=== PATIENT | male | born 1970 | race Caucasian/White ===

== ENCOUNTER 2019-09-01 07:10 | Outpatient (CLI) | payer BC, SELFPAY ==
--- NOTE | ~2019-09-01 | CT_ITS ---
EXAMINATION: CT abdomen pelvis w con DATE: 09/01/2019 07:47 INDICATION: Colon cancer TECHNIQUE: Computed tomography (CT) of the abdomen and pelvis was performed with 100 mL Omnipaque-350 intravenous contrast. Automated exposure control and iterative reconstruction technique were employe d. The dose-length product was 545.75 mGy-cm. COMPARISON: 11/12/2018 FINDINGS: Lung bases are clear. Heart size is normal. No pericardial or pleural effusion. Tiny calcified gallst one in the dependent aspect of the normal-appearing gallbladder. Liver, spleen, pancreas, bilateral a drenal glands and kidneys are normal. Anastomotic suture line along the descending colon at the site of a prior colonic intussusception likely related to reported colon cancer which appears to have been resected. The bowels including the appendix are otherwise normal. Bilateral small fat-containing ing uinal hernias. Bladder is normal. No free intraperitoneal gas or fluid. No pathologically enlarged ab dominal or pelvic lymphadenopathy. No suspicious lytic or blastic bone lesions. Chronic bilateral L5 pars interarticularis defects with unchanged negligible anterolisthesis L5 on S1. IMPRESSION: 1. No evident metastatic disease. 2. Cholelithiasis. 3. Small bilateral fat-containing inguinal hernias. Reviewed, dictated and finalized at location A.
== END 2019-09-01 07:11 | disposition home or self-care (01) ==
LOC: ANHIMG 07:15
PROVIDERS: PCP Family Medicine; Visit Provider Internal Medicine Hematology & Oncology
DX: C18.2 Malignant neoplasm of ascending colon (principal); K80.20 Calculus of gallbladder without cholecystitis without obstruction; K40.20 Bilateral inguinal hernia, without obstruction or gangrene, not specified as recurrent
CPT/HCPCS: 74177; Q9967

== ENCOUNTER 2019-11-14 00:17 | Outpatient (CLI) | payer BC, SELFPAY ==
[2019-11-14 19:23] LABS: SARS-CoV-2 RNA PCR Negative
== END 2019-11-14 00:18 | disposition home or self-care (01) ==
LOC: ANHCOVIDDT 00:17
PROVIDERS: PCP Family Medicine; Visit Provider Internal Medicine Gastroenterology
DX: Z01.818 Encounter for other preprocedural examination (principal); Z11.59 Encounter for screening for other viral diseases
CPT/HCPCS: 87635; C9803; U0003

== ENCOUNTER 2019-11-17 02:11 | Day surgery (SDC) | payer BC, SELFPAY ==
[2019-11-11 10:34] VITALS: BMI 31.2
[2019-11-17 06:18] VITALS: BP 132/89; PULSE 64; RESP 20; TEMP 36.5; O2SAT 99
[2019-11-17] MEDS: LACTATED RINGERS 1,000 ML 150 ML IV CONT (06:33)
--- NOTE | 2019-11-17 06:58 | WPDANESEPPF ---
Anes - Initial Pre Proc Eval Procedure: Operation Date: 11/17/19 07:30 Proposed Procedures p Screening Colonoscopy - Alphonso Bain MD Date/Time: 11/17/19 06:58 Surgeon: Alphonso Bain MD Pre Op Diagnosis: Neoplasm Screening/ Hx Colon Ca Patient Data Age: 49 Gender: M Height: 5 ft 3 in Weight: 77 kg Last Vital Signs Temp 36.5 C 11/17/19 06:18 Pulse 64 11/17/19 06:18 Resp 20 11/17/19 06:18 BP 132/89 11/17/19 06:18 Pulse Ox 99 11/17/19 06:18 Allergies Allergy/AdvReac Type Severity Reaction Status Date / Time No Known Allergies Allergy Verified 11/17/19 06:16 Home Medications Medication Instructions Recorded Confirmed Type omeprazole magnesium [Prilosec OTC] 20 mg PO DAILY 02/11/19 11/11/19 History Patient hx anesthesia problems: none Family hx anesthesia problems: none PMFSH Past Medical History Medical History DENNIS (obstructive sleep apnea) Family History Family History Father Family history of malignant neoplasm Mother Family history of malignant neoplasm Social History Social History Smoking status: Never smoker Alcohol intake: never Anes - Eval Final PreProcedure Day of Procedure 11/17/19 06:58 Patient weight: overweight Heart: regular rate and rhythm Lungs: clear to auscultation Airway: Mallampati scale class II Neurological: alert and oriented Last oral intake: >/= 8 hours ASA classification: III Emergent: no Anesthetic plan: proceed Anesthesia type and monitoring: general GIVS and standard monitoring Informed Consent: The patient's anesthetic plan and its attendant risks and benefits were discussed with the patient/family/POA. Questions were solicited and answers provided to the satisfaction of the patient/family/POA.
--- NOTE | 2019-11-17 07:16 | WPDGICN ---
Assessment and Plan Assessment and plan (1) History of colon cancer in adulthood: Code(s): Z85.038 - Personal history of other malignant neoplasm of large intestine Status: Acute Assessment and Plan: Patient has a history of a T3 N1 colon cancer resected in October of 2018. Patient presents today for follow-up examination is current weight appetite bowel movements are normal. Plan is for continued oncology follow-up. Further recommendations may be given after colonoscopy. GI Consult Note Consult date/time: 11/17/19 07:16 HPI: Campos Oconnell is a 49 year old male seen in evaluation at the request of Dr Kumar and DR Beverly. Patient presents for colonoscopy. Patient has a history of carcinoma of the colon identified 1 year ago and underwent surgical resection. Since that time he has done well. His current weight appetite bowel movements are normal. He denies abdominal pain. He denies any bleeding. Currently follows with Dr. joe lund after surgical resection of colon cancer. Patient states current weight appetite bowel movements are normal. He denies abdominal pain or bleeding. Family history is noncontributory. There is no known history of colon or rectal disease. At the time of resection of his colon cancer he did have metastases in 05/17 lymph nodes. Tumor was noted to progressed through the colon wall into the pericolonic rectal tissue. It was felt to be a T3 N1 stage tumor. Review of Systems Review of Systems: All systems reviewed & are unremarkable except as noted in HPI and below PMFSH Past Medical History Medical History DENNIS (obstructive sleep apnea) Family History Family History Father Family history of malignant neoplasm Mother Family history of malignant neoplasm Social History Social History Smoking status: Never smoker Alcohol intake: never Meds Home Medications and Allergies Home Medications Medication Instructions Recorded Confirmed Type omeprazole magnesium [Prilosec OTC] 20 mg PO DAILY 02/11/19 11/11/19 History Allergies Allergy/AdvReac Type Severity Reaction Status Date / Time No Known Allergies Allergy Verified 11/17/19 06:16 Vital Signs Vital Signs - 24 hr 11/17/19 06:18 Temperature 97.7 F Pulse Rate 64 Respiratory Rate 20 Blood Pressure 132/89 Pulse Oximetry 99 Exam Narrative: Exam Narrative: Physical exam reveals patient to be alert. Vital signs stable. HEENT exam unremarkable. Lungs are clear to auscultation and percussion. Heart is without murmur or extra sounds. Abdominal exam bowel sounds are present soft nontender with no organomegaly. Digital external rectal exam normal.
[2019-11-17 07:50] VITALS: BP 114/75; PULSE 68; RESP 16; O2SAT 99
[2019-11-17 07:56] VITALS: BP 114/81; PULSE 58; RESP 14; O2SAT 97
[2019-11-17 08:06] VITALS: BP 124/83; PULSE 61; RESP 22; O2SAT 100
== END 2019-11-17 08:17 | disposition home or self-care (01) ==
PROVIDERS: PCP Family Medicine; Visit Provider Internal Medicine Gastroenterology
PROC: 0DJD8ZZ Inspection of Lower Intestinal Tract, Via Natural or Artificial Opening Endoscopic (ICD-10-PCS; CPT 45378; principal; 2019-11-17 07:30)
DX: Z12.11 Encounter for screening for malignant neoplasm of colon (principal); K63.5 Polyp of colon; K64.8 Other hemorrhoids; Z85.038 Personal history of other malignant neoplasm of large intestine; E66.3 Overweight; Z68.30 Body mass index [BMI] 30.0-30.9, adult; G47.33 Obstructive sleep apnea (adult) (pediatric); Z79.899 Other long term (current) drug therapy
CPT/HCPCS: 45385; 88305; J2704; J7120

== ENCOUNTER 2020-04-06 10:27 | Outpatient (CLI) | payer BC, SELFPAY ==
--- NOTE | ~2020-04-06 | CT_ITS ---
EXAMINATION: CT abdomen pelvis w con DATE: 04/06/2020 11:07 INDICATION: Restaging of malignant neoplasm of ascending colon TECHNIQUE: Computed tomography (CT) of the abdomen and pelvis was performed with 100 cc Omnipaque 350 intravenous contrast. Automated exposure control and iterative reconstruction technique were employe d. Exam dose: 591.81 mGy-cm total exam DLP. COMPARISON: 09/01/2019 CT abdomen pelvis FINDINGS: Normal heart size. No pericardial or pleural effusion. The lung bases are clear of infiltra te or consolidation. There is an approximately 3 mm stone at the neck of the gallbladder. No abnormal gallbladder distenti on or gallbladder wall thickening or pericholecystic fluid or stranding. No hepatic space-occupying mass lesion. No bile duct dilatation. Normal splenic size. No pancreatic m ass lesion, calcification or ductal dilatation. Normal morphology of the adrenal glands. No renal mass lesion. No urinary tract calculus or hydroureteronephrosis. The urinary bladder is unre markable. Mild prostate enlargement. Small bilateral fat-containing inguinal hernias, right greater than left. Normal appendix. There is a suture line at the descending colon, consistent with colon resection for previously reported colon malignancy. No bowel obstruction, bowel wall thickening, pneumatosis or int raperitoneal free air is evident. Normal caliber of the abdominal aorta. No intraperitoneal or retroperitoneal or pelvic mass lesion or adenopathy or ascites. Small fat-containing umbilical hernia. There are bilateral L5 pars intra-articular is defects with grade 1 anterolisthesis at L5-S1. No suspicious osteolytic or osteoblastic lesions. IMPRESSION: Status post left colon resection for history of malignancy; no prostatic disease is evid ent Cholelithiasis Bilateral L5 pars interarticularis defects with associated grade 1 anterolisthesis at L5-S1 Reviewed, dictated and finalized at [facility]. Reviewed, dictated and finalized at location A. CONTROL TECHNICIAN IMPRESSION: Status post left colon resection for history of malignancy; no pro static disease is evident Cholelithiasis Bilateral L5 pars interarticularis defects with associated grade 1 anterolisthe sis at L5-S1
== END 2020-04-06 10:28 | disposition home or self-care (01) ==
PROVIDERS: PCP Family Medicine; Visit Provider Internal Medicine Hematology & Oncology
DX: C18.2 Malignant neoplasm of ascending colon (principal); K80.20 Calculus of gallbladder without cholecystitis without obstruction; K40.20 Bilateral inguinal hernia, without obstruction or gangrene, not specified as recurrent; N40.0 Benign prostatic hyperplasia without lower urinary tract symptoms; K42.9 Umbilical hernia without obstruction or gangrene
CPT/HCPCS: 74177; Q9967

== ENCOUNTER 2020-05-29 01:28 | Outpatient (CLI) | payer BC, SELFPAY ==
[2020-05-29 18:47] LABS: SARS-CoV-2 RNA PCR Negative
== END 2020-05-29 01:29 | disposition home or self-care (01) ==
LOC: ANHCOVIDDT 01:28
PROVIDERS: PCP Family Medicine; Visit Provider Surgery
DX: Z01.812 Encounter for preprocedural laboratory examination (principal); Z20.822 Contact with and (suspected) exposure to COVID-19
CPT/HCPCS: C9803; U0003; U0005

== ENCOUNTER 2020-06-02 01:28 | Day surgery (SDC) | payer BC, SELFPAY ==
[2020-05-28 13:01] VITALS: BMI 31.2
--- NOTE | 2020-06-01 14:16 | WPDANESEPPF ---
Anes - Initial Pre Proc Eval Procedure: Operation Date: 06/02/20 14:00 Proposed Procedures p Removal Ana Cath - Jan Herrera MD Date/Time: 06/01/20 14:16 Surgeon: Jan Herrera MD Pre Op Diagnosis: malignant neoplasm of ascending colon Patient Data Age: 49 Gender: M Height: 1.6 m Weight: 80 kg Allergies Allergy/AdvReac Type Severity Reaction Status Date / Time No Known Allergies Allergy Verified 05/28/20 13:00 Home Medications Medication Instructions Recorded Confirmed Type omeprazole magnesium [Prilosec OTC] 20 mg PO DAILY 02/11/19 05/28/20 History PMFSH Past Medical History Medical History (Updated 06/01/20 @ 14:18 by Sanjiv Lee MD) Chronic GERD Malignant neoplasm of descending colon Obesity DENNIS (obstructive sleep apnea) Surgical History Surgical History (Updated 06/01/20 @ 14:18 by Sanjiv Lee MD) S/P colon resection 10/2018 Family History Family History Father Family history of malignant neoplasm Mother Family history of malignant neoplasm Social History Social History Smoking status: Former smoker Additional smoking assessment comments: STATES 1PK/2-3DAYS/2YRS - QUIT AGE 18 Alcohol intake: current Drinks per week: 3 Substance use: never Spiritual care concerns: No Anes - Eval Final PreProcedure Day of Procedure 06/01/20 14:16 Patient weight: obese Heart: regular rate and rhythm Lungs: clear to auscultation and normal air movement Airway: Mallampati scale class II Neurological: alert and oriented Last oral intake: >/= 8 hours ASA classification: III Emergent: no Anesthetic plan: proceed Anesthesia type and monitoring: general GIVS Informed Consent: The patient's anesthetic plan and its attendant risks and benefits were discussed with the patient/family/POA. Questions were solicited and answers provided to the satisfaction of the patient/family/POA.
--- NOTE | 2020-06-02 13:54 | WPDHPUPDATE1 ---
History and Physical Update Update Date/Time: 06/02/20 13:54 History and Physical has been reviewed, including an updated exam of the patient. There are NO changes in the patient's condition. Risks, benefits, and alternatives have been discussed and questions answered. Patient agrees to proceed with procedure.
--- NOTE | 2020-06-02 13:55 | PM.HPGS ---
History of Present Illness History of Present Illness Consent: Risks, benefits, and alternatives of a removal of Port-A-Cath have been discussed and questions answered. Patient agrees to proceed with procedure. Chief complaint: malignant neoplasm of ascending colon Narrative: Campos Oconnell is a 49 year old male who had a stage III left-sided colon cancer in 2018. Through late 2018 and part of 2019 patient underwent FOLFOX regimen of chemotherapy. States that his port was placed and ovary in [place] somewhere. Head is been functioning well. He was scheduled to have a flushed again on June 08. However, he presents at this time at the request of Dr. Beverly who was his medical oncologist to have his Port removed as they have a CT scan showing no recurrent disease and he is planning to continue following up with Dr. Beverly in the future. He will probably not need any more chemotherapy. Review of Systems Constitutional: Constitutional: Reports no additional constitutional complaints, Reports fatigue and Denies malaise Eyes: Eyes: Denies change in vision and Denies loss of vision ENT: Reports Normal hearing present, Denies change in voice, Denies dizziness, Denies hoarseness and Denies sore throat Cardiovascular: Cardiovascular: Denies chest pain, Denies leg edema and Denies dyspnea Respiratory: Respiratory: Denies cough, Denies dyspnea and Denies wheezing Gastrointestinal: Gastrointestinal: Denies hematochezia, Denies change in bowel habits and Denies heartburn Genitourinary: Genitourinary: Denies urinary frequency and Denies urinary incontinence Neurologic: Reports Normal hearing present, Denies confusion, Denies dizziness, Denies loss of vision, Denies memory loss and Denies seizure-like activity Psychiatric: Psychiatric: Denies confusion, Denies depression and Denies memory loss Endocrine: Endocrine: Denies cold intolerance and Reports fatigue Hematologic/Lymphatic: Hematologic/Lymphatic: Denies easy bleeding and Denies easy bruising Comments: History of mild anemia No history of bleeding problems. Not on any blood thinners at this time. Allergic/Immunologic: Allergic/Immunologic: Denies wheezing PMFSH Past Medical History Medical History Anemia, iron deficiency Chronic GERD Malignant neoplasm of descending colon (~2018) Obesity DENNIS (obstructive sleep apnea) Surgical History Surgical History S/P colon resection (~2018) 10/2018 Family History Family History Father Family history of malignant neoplasm Mother Family history of malignant neoplasm Social History Social History Smoking status: Former smoker Additional smoking assessment comments: STATES 1PK/2-3DAYS/2YRS - QUIT AGE 18 Alcohol intake: current Drinks per week: 3 Substance use: never Living arrangements: alone Spiritual care concerns: No Meds Home Medications and Allergies Home Medications Medication Instructions Recorded Confirmed Type omeprazole magnesium [Prilosec OTC] 20 mg PO DAILY 02/11/19 05/28/20 History Allergies Allergy/AdvReac Type Severity Reaction Status Date / Time No Known Allergies Allergy Verified 05/28/20 13:00 Exam Const: General: cooperative, healthy appearing, no acute distress, well developed and alert; No confusion Nutritional Appearance: well nourished Orientation/consciousness: patient oriented x3 and No confusion Limitations: no limitations HENMT: Head: normal to inspection, normocephalic and atraumatic Ears: hearing grossly normal bilaterally General nose exam: Normal external nose present Face and sinus: no edema Mouth: Yes Normal oral and palatal mucosa present and Yes lip normal Throat: posterior oropharynx normal Eyes: General: appearanc
[2020-06-02 13:59] VITALS: BP 156/90; PULSE 78; RESP 14; TEMP 37; O2SAT 99
[2020-06-02 14:20] VITALS: BP 136/82; PULSE 74; RESP 14; O2SAT 99
[2020-06-02 14:30] VITALS: BP 132/81; PULSE 83; RESP 14; O2SAT 98
[2020-06-02] MEDS: LIDO 2%/EPINEPHRINE 1:100,000 20 ML VIAL INFILTRATE (14:36)
[2020-06-02 14:40] VITALS: BP 128/74; PULSE 89; RESP 16; O2SAT 98
[2020-06-02 14:50] VITALS: BP 136/82; PULSE 88; RESP 16; O2SAT 95
[2020-06-02 15:01] VITALS: BP 139/86; PULSE 77; RESP 14; O2SAT 99
--- NOTE | 2020-06-02 15:16 | P.OP_ITS ---
Procedure Note - Detailed Date of procedure: 06/02/20 Pre-op diagnosis: malignant neoplasm of ascending colon Indwelling Port-A-Cath Post-op diagnosis: same Procedure performed: Removal of Port-A-Cath Description of procedure: Prior to the procedure the patient was seen in the holding area and the area of proposed surgery was marked. All questions were answered and the patient wished to proceed with removal of the Port-A-Cath. The patient was brought to the operating room and placed supine. The entire right neck, chest, and shoulder were prepped with chlorhexidine. The area was draped off. Time-out was performed confirming patient and site of surgery. Following this a 15 blade knife was used to make incision directly on the scar from the previous port placement. This was done after infiltrating local anesthetic into the area of and inferior to the scar and into the area of the pocket containing the port to some degree using 2% xylocaine with epinephrine. Following this we carefully dissected down to the junction of the port and catheter. Bovie cautery with needle-tip was used to carefully incise the capsule around the port and free up the scar tissue around the junction of the port and catheter. Two Prolene sutures that were holding the port to the underlying fascia were carefully excised with a 15 blade knife and mosquito hemostats. Following this the port was brought up and out of the pocket. Then watching the patient's respirations I carefully removed the catheter in one smooth pull while applying pressure in the lower right neck area at the catheter exit site as the patient was breathing out. Pressure was held for 1 minute. I used Bovie cautery on some the subcutaneous tissues as we waited for good clotting. Again hemostasis was checked in the wound using Bovie cautery for superficial hemostasis in the subcutaneous tissues. Following this closure was obtained with 2 layers. I used buried subcutaneous sutures of 3-0 Vicryl in the subcutaneous layer followed by a running subcuticular closure of 4-0 Monocryl on the skin. Patient tolerated the procedure well. Estimated blood loss was 3 cc Sponge, needle, and instrument counts were correct at the end the procedure and patient was taken to the outpatient recovery area in good condition. Implants: none Anesthesia: local ( 2% xylocaine with epinephrine) Surgeon: Jan Herrera MD Certified Residential Medication Aide: none Drains: No Packing: No Pathology: other (Port and the catheter were inspected and were intact) Complications: No immediate complications Condition: stable Disposition: same day ( outpatient recovery area) Findings: unremarkable port and catheter that were intact.
== END 2020-06-02 15:21 | disposition home or self-care (01) ==
PROVIDERS: PCP Family Medicine; Visit Provider Surgery
PROC: (CPT 36589; principal; 2020-06-02 14:00)
DX: Z45.2 Encounter for adjustment and management of vascular access device (principal); Z85.038 Personal history of other malignant neoplasm of large intestine; Z92.21 Personal history of antineoplastic chemotherapy; Z90.49 Acquired absence of other specified parts of digestive tract
CPT/HCPCS: 36590

== ENCOUNTER 2021-02-04 09:16 | Outpatient (CLI) | payer BC, SELFPAY ==
--- NOTE | ~2021-02-04 | CT_ITS ---
EXAMINATION: CT abdomen pelvis w con DATE: 02/04/2021 09:52 INDICATION: Malignant neoplasm of ascending colon. TECHNIQUE: Computed tomography (CT) of the abdomen and pelvis was performed with 100 mL Omnipaque 350 intravenous contrast. Automated exposure control and iterative reconstruction technique were employe d. The dose-length product was 486.01 mGy-cm. COMPARISON: CT abdomen and pelvis 04/06/2020 FINDINGS: The visualized portions of the lung bases are clear without pneumonia or pleural effusion. The heart size is normal. No pericardial effusion. The liver is normal. There is a gallstone in the g allbladder, which is normal in size. The spleen, pancreas, adrenal glands, and kidneys are normal. Th ere are no dilated loops of bowel. There is an anastomosis in the descending colon. The appendix is n ormal. There is a right inguinal hernia containing fat. There are no pathologically enlarged lymph no jay. There is no free intraperitoneal fluid. There are chronic bilateral L5 pars defects. There is 3 mm anterolisthesis of L5 on S1. IMPRESSION: 1. No evidence of metastatic disease. Reviewed, dictated and finalized at location A.
== END 2021-02-04 09:17 | disposition home or self-care (01) ==
PROVIDERS: PCP Family Medicine; Visit Provider Internal Medicine Hematology & Oncology
DX: C18.2 Malignant neoplasm of ascending colon (principal)
CPT/HCPCS: 74177; Q9967

== ENCOUNTER 2022-03-03 08:24 | Outpatient (CLI) | payer BC, SELFPAY ==
--- NOTE | ~2022-03-03 | CT_ITS ---
EXAMINATION: CT abdomen pelvis w con DATE: 03/03/2022 09:52 INDICATION: Colon cancer TECHNIQUE: Computed tomography (CT) of the abdomen and pelvis was performed with 100 mL Omnipaque-350 intravenous contrast. Automated exposure control and iterative reconstruction technique were employe d. The dose-length product was 444.12 mGy-cm. COMPARISON: 02/04/2021 FINDINGS: Lung bases are clear. Heart size is normal. No pericardial or pleural effusion. Liver, spleen, pancre as, bilateral adrenal glands and kidneys are normal. 3 mm calcified gallstone at the neck of the gall bladder. No intra-axial hepatic biliary ductal dilation. Anastomotic suture line along the descending colon suggesting prior segmental resection likely for reported colon cancer. Small bowel and appendi x are normal. Bladder is normal. No free intraperitoneal gas or fluid. No pathologically enlarged abd ominal or pelvic lymphadenopathy. Small fat-containing right inguinal hernia. L5 spondylolysis with b ilateral pars interarticularis defects and 3 mm anterolisthesis L5 on S1. IMPRESSION: 1. No evident metastatic disease or acute intra-abdominal/pelvic process. 2. Cholelithiasis. Reviewed, dictated and finalized at location B.
== END 2022-03-03 08:25 | disposition home or self-care (01) ==
PROVIDERS: PCP Family Medicine; Visit Provider Internal Medicine Hematology & Oncology
DX: C18.2 Malignant neoplasm of ascending colon (principal); K80.20 Calculus of gallbladder without cholecystitis without obstruction
CPT/HCPCS: 74177; Q9967

== ENCOUNTER 2022-03-03 10:19 | Outpatient (CLI) | payer BC, SELFPAY ==
[2022-03-03 10:33] LABS: Basophils Percent Auto 0.7 % (0.2-1.2); Eosinophils Absolute Auto 0.1 K/mm3 (0-0.3); Eosinophils Percent Auto 1.8 % (0-4.4); Hemoglobin 16.3 g/dL (14.0-18.0); Immature Granulocyte Absolute 0.04 K/mm3 (0.00-0.031); Immature Granulocyte Percent A 0.9 % (0-0.5); Lymphocytes Absolute Auto 1.56 K/mm3 (0.9-3.2); Lymphocytes Percent Auto 35.9 % (18.3-44.2); Mean Corpuscular HGB Conc 36.2 g/dl (32-36); Mean Corpuscular Volume 91.1 fl (80-100); Mean Platelet Volume 9.4 fl (7.4-10.4); Monocytes Absolute Auto 0.3 K/mm3 (0.1-0.6); Monocytes Percent Auto 6.7 % (2.6-8.5); Neutrophils Absolute Auto 2.4 K/mm3 (1.3-6.7); Platelet Count Result 188 k/mm3 (150-375); Red Blood Count 4.94 M/mm3 (4.6-6.20); Red Cell Distribution Width 12.3 % (11.5-14.5); White Blood Count 4.4 K/mm3 (4.5-10.0)
[2022-03-03 12:27] LABS: Alanine Aminotransferase 30 U/L (6-50); Albumin Level 4.7 g/dL (3.5-5.1); Alkaline Phosphatase 75 U/L (38-126); Anion Gap 14 mmol/L (8-16); Aspartate Amino Transferase 24 U/L (17-59); Bilirubin,Total 0.9 mg/dL (0.2-1.3); Blood Urea Nitrogen 16 mg/dL (9-20); Calcium 8.9 mg/dL (8.4-10.2); Carbon Dioxide 25 mmol/L (22-30); Chloride 103 mmol/L (98-107); Estimated Glomerular Filt Rate > 60; Glucose 119 mg/dL (65-110); Sodium 142 mmol/L (137-145)
[2022-03-03 12:57] LABS: Carcinoembryonic Antigen 1.1 ng/mL (0.0-3.0)
== END 2022-03-03 10:20 | disposition home or self-care (01) ==
LOC: ANHLAB 10:20
PROVIDERS: PCP Family Medicine; Visit Provider Internal Medicine Hematology & Oncology
DX: C18.2 Malignant neoplasm of ascending colon (principal)
CPT/HCPCS: 36415; 80053; 82378; 85025

== ENCOUNTER 2022-12-22 01:24 | Day surgery (SDC) | payer OTHER, SELFPAY ==
[2022-12-08 15:19] VITALS: BMI 30.8
[2022-12-22 08:35] VITALS: BP 142/93; PULSE 65; RESP 20; TEMP 36.2; O2SAT 100
--- NOTE | 2022-12-22 08:37 | P.PNAN_ITS ---
Anes - Initial Pre Proc Eval Procedure: Operation Date: 12/22/22 09:30 Proposed Procedures p Colonoscopy - Alphonso Bain MD Date/Time: 12/22/22 08:37 Surgeon: Alphonso Bain MD Pre Op Diagnosis: hx colon ca Patient Data Age: 52 Gender: M Height: 1.6 m Weight: 77 kg Last Vital Signs Temp 36.2 C L 12/22/22 08:35 Pulse 65 12/22/22 08:35 Resp 20 12/22/22 08:35 BP 142/93 H 12/22/22 08:35 Pulse Ox 100 12/22/22 08:35 O2 Del Method Room Air 12/22/22 08:35 Allergies Allergy/AdvReac Type Severity Reaction Status Date / Time No Known Allergies Allergy Verified 12/22/22 08:34 Home Medications Medication Instructions Recorded Confirmed Type omeprazole magnesium 20 mg 20 mg PO DAILY 02/11/19 12/22/22 History tablet,delayed release (Prilosec OTC) Patient hx anesthesia problems: none Family hx anesthesia problems: none Results Review: All pre-operative results and documents have been reviewed as part of the pre- operative evaluation. [facility] Past Medical History Medical History Anemia, iron deficiency Chronic GERD Malignant neoplasm of descending colon (~2017) Obesity DENNIS (obstructive sleep apnea) Port-A-Cath in place Surgical History Surgical History History of removal of Port-a-Cath S/P colon resection (~2017) 10/2018 Family History Family History Father Family history of malignant neoplasm Mother Family history of malignant neoplasm Social History Social History Smoking packs per day: 0.5 Smoking cigarettes per day: 10.0 Smoking status: Former smoker Tobacco type: cigarettes Additional smoking assessment comments: STATES 1PK/2-3DAYS/2YRS - QUIT AGE 18 Alcohol intake: current Drinks per week: 14 Substance use: never Substance use type: does not use Living arrangements: with family Spiritual care concerns: No Anes - Eval Final PreProcedure Day of Procedure 12/22/22 08:37 Patient weight: overweight Heart: regular rate and rhythm Lungs: clear to auscultation Airway: Mallampati scale class II Neurological: alert and oriented ASA classification: III Emergent: no Anesthetic plan: proceed Anesthesia type and monitoring: general GIVS and standard monitoring Results Review: All pre-operative results and documents have been reviewed as part of the pre- operative evaluation. Informed Consent: The patient's anesthetic plan and its attendant risks and benefits were discussed with the patient/family/POA. Questions were solicited and answers provided to the satisfaction of the patient/family/POA.
[2022-12-22] MEDS: LACTATED RINGERS 1,000 ML 150 ML IV CONT (08:45)
--- NOTE | 2022-12-22 08:53 | PM.HPGS ---
History of Present Illness History of Present Illness Consent: Risks, benefits, and alternatives have been discussed and questions answered. Patient agrees to proceed with procedure. Chief complaint: hx colon ca Narrative: Campos Oconnell is a 52 year old male Presents for screening colonoscopy. Patient's current weight appetite and bowel movements are normal. He denies abdominal pain. He has had no bleeding. Patient diagnosed with colon cancer 2019 he was resected. Most recent colonoscopy 2019 was unremarkable. Patient presents today for surveillance screening colonoscopy. Family history is noncontributory. Review of Systems Review of Systems: Physical exam reveals patient to be alert. Vital signs stable. HEENT exam is unremarkable. Patient is anicteric. Lungs are clear to auscultation and percussion. Heart is without murmur or extra sounds. Abdomen bowel sounds are present soft nontender with no organomegaly. Digital external rectal exam is normal. [facility] Past Medical History Medical History Anemia, iron deficiency Chronic GERD Malignant neoplasm of descending colon (~2017) Obesity DENNIS (obstructive sleep apnea) Port-A-Cath in place Surgical History Surgical History History of removal of Port-a-Cath S/P colon resection (~2017) 10/2018 Family History Family History Father Family history of malignant neoplasm Mother Family history of malignant neoplasm Social History Social History Smoking packs per day: 0.5 Smoking cigarettes per day: 10.0 Smoking status: Former smoker Tobacco type: cigarettes Additional smoking assessment comments: STATES 1PK/2-3DAYS/2YRS - QUIT AGE 18 Alcohol intake: current Drinks per week: 14 Substance use: never Substance use type: does not use Living arrangements: with family Spiritual care concerns: No Meds Home Medications and Allergies Home Medications Medication Instructions Recorded Confirmed Type omeprazole magnesium 20 mg 20 mg PO DAILY 02/11/19 12/22/22 History tablet,delayed release (Prilosec OTC) Allergies Allergy/AdvReac Type Severity Reaction Status Date / Time No Known Allergies Allergy Verified 12/22/22 08:34 Vital Signs Vital Signs - 24 hr 12/22/22 08:35 Temperature 97.2 F L Pulse Rate 65 Respiratory Rate 20 Blood Pressure 142/93 H Pulse Oximetry 100 Oxygen Delivery Room Air Assessment and Plan Assessment and plan (1) History of colon cancer in adulthood: Code(s): Z85.038 - Personal history of other malignant neoplasm of large intestine Status: Acute Assessment and Plan: Patient presents for screening colonoscopy. He has a history of colon cancer resected 2019. Anticipate follow-up colonoscopy at 3 year intervals. Further recommendations may be given after endoscopy.
[2022-12-22 09:40] VITALS: BP 102/68; PULSE 61; RESP 16; O2SAT 99
[2022-12-22 09:50] VITALS: BP 112/67; PULSE 62; RESP 20; O2SAT 93
[2022-12-22 10:00] VITALS: BP 102/68; PULSE 61; RESP 16; O2SAT 99
== END 2022-12-22 10:14 | disposition home or self-care (01) ==
PROVIDERS: PCP Family Medicine; Visit Provider Internal Medicine Gastroenterology
PROC: 0DJD8ZZ Inspection of Lower Intestinal Tract, Via Natural or Artificial Opening Endoscopic (ICD-10-PCS; CPT 45378; principal; 2022-12-22 09:30)
DX: Z12.11 Encounter for screening for malignant neoplasm of colon (principal); D12.3 Benign neoplasm of transverse colon; K63.5 Polyp of colon; K64.8 Other hemorrhoids; K21.9 Gastro-esophageal reflux disease without esophagitis; G47.33 Obstructive sleep apnea (adult) (pediatric); D50.9 Iron deficiency anemia, unspecified; Z85.038 Personal history of other malignant neoplasm of large intestine; Z87.891 Personal history of nicotine dependence
CPT/HCPCS: 45385; 88305; J2704; J7120

== ENCOUNTER 2023-07-21 08:05 | Outpatient (CLI) | payer OTHER, SELFPAY ==
--- NOTE | ~2023-07-21 | CT_ITS ---
EXAMINATION: CT abdomen pelvis w con DATE: 07/21/2023 08:52 INDICATION: Malignant neoplasm of the ascending colon TECHNIQUE: Computed tomography (CT) of the abdomen and pelvis was performed with 100 cc Omnipaque 350 intravenous contrast. The dose-length product was 493.70 mGy-cm. Automated exposure control and iter ative reconstruction technique were employed. COMPARISON: CT dated 03/03/2022 and 02/04/2021 FINDINGS: Lung bases are unremarkable. Heart size normal. No significant pleural or pericardial effus ion. The liver, spleen, pancreas, adrenal glands and kidneys are unremarkable. There are gallstones. Nonobstructive bowel gas pattern. No focal bowel masses are identified. Normal appendix. No significa nt vascular abnormality. No lymphadenopathy. No free air or free fluid. There is chronic grade 1 spon dylolisthesis at L5-S1 secondary to spondylolysis. IMPRESSION: 1. No evidence for metastatic disease. Reviewed, dictated and finalized at location A.
== END 2023-07-21 08:06 | disposition home or self-care (01) ==
LOC: ANHIMG 08:12
PROVIDERS: PCP Family Medicine; Visit Provider Internal Medicine Hematology & Oncology
DX: C18.2 Malignant neoplasm of ascending colon (principal)
CPT/HCPCS: 74177; Q9967

== ENCOUNTER 2023-11-29 14:00 | Outpatient (CLI) | payer OTHER, SELFPAY ==
--- NOTE | ~2023-11-29 | XR_ITS ---
Cervical Spine: AP, lateral, open-mouth views Clinical History: Pain Findings: The normal lordotic curve is maintained. The vertebral bodies and posterior elements appea r intact. There are minimal degenerative disc changes throughout the cervical spine. Minimal facet ar thropathy present. Pre-vertebral soft tissues are unremarkable. Impression: Minimal degenerative spondylosis. Reviewed, dictated and finalized at [facility]. Impression: Minimal degenerative spondylosis.
--- NOTE | ~2023-11-29 | XR_ITS ---
Right Shoulder Technique: AP and scapular Y views were obtained. Clinical History: Pain Findings: No fracture or dislocation is seen. Osseous alignment is anatomic. The glenohumeral and acr omioclavicular joint spaces are preserved. Soft tissues are unremarkable. Impression: Unremarkable right shoulder radiographs. Reviewed, dictated and finalized at [facility]. Impression: Unremarkable right shoulder radiographs.
== END 2023-11-29 14:01 | disposition home or self-care (01) ==
LOC: ANHIMG 14:02
PROVIDERS: PCP Family Medicine
DX: R42 Dizziness and giddiness (principal); M54.2 Cervicalgia
CPT/HCPCS: 72040; 73030